=== PATIENT | female | born 1935 | race Asian ===

== ENCOUNTER 2017-07-01 15:45 | Emergency (ER) | payer MEDICARE ==
[~2017-07-01] VITALS: Ht 152.4 cm; Wt 36.3 kg
--- NOTE | 2017-07-01 15:45 | NUR ---
Patient to ER bed 08 to gown for evaluation. Side rails up. Report given to Roel.
--- NOTE | 2017-07-01 15:45 | NUR ---
Pt report received from MELANY Bassett. Pt brought in with c/o "vomiting up blood" with cough since this AM. Pt AAOx3, even and non-labored respirations, BBS clear, no active vomiting or cough noted at this time. Pt denies c/o SOB or C/P. Family member at bedside.
[2017-07-01] MEDS ORDERED: NS 500 ML IV SCH (15:48)
[2017-07-01 15:57] VITALS: BP_SYST 146
[2017-07-01] MEDS ORDERED: cefTRIAXone 1 GM IVPB PREMIX 50 ML IV ONE (16:00)
--- NOTE | 2017-07-01 16:00 | NUR ---
# 20 gauge angiocath placed to RAC. Use of asceptic technique. Opsite placed over site. Blood return noted. Blood for lab drawn from site. Flushed with 10 cc of normal saline. No evidence of infiltration noted. Patient tolerated well.
[2017-07-01 16:29] LABS: BASOPHILS % (AUTO) 0.2 % (0.0-2.0); EOSINOPHILS # (AUTO) 0.1 K/uL (0.0-0.4); EOSINOPHILS % (AUTO) 0.6 % (0.0-4.0); HEMATOCRIT 35.2 % (36-48); HEMOGLOBIN 11.4 g/dL (12.0-16.0); LYMPHOCYTES # (AUTO) 1.6 K/uL (1.0-5.5); LYMPHOCYTES % (AUTO) 12.4 % (20.5-51.5); MEAN CORPUSCULAR HEMOGLOBIN 29 pg (27-31); MEAN CORPUSCULAR HGB CONC 33 % (32-36); MEAN CORPUSCULAR VOLUME 90 fL (79.0-98.0); MONOCYTES # (AUTO) 0.4 K/uL (0.0-1.0); MONOCYTES % (AUTO) 3.4 % (1.7-9.3); NEUTROPHILS % (AUTO) 83.4 % (40.0-70.0); PLATELET COUNT (AUTO) 335 K/uL (130-430); RED BLOOD CELL COUNT(AUTO) 3.89 MIL/uL (4.2-6.2); RED CELL DISTRIBUTION WIDTH 12.6 % (9.0-15.0); WHITE BLOOD COUNT (AUTO) 13.1 K/uL (4.8-10.8)
[2017-07-01 16:51] LABS: ALANINE AMINOTRANSFERASE 12 U/L (12-78); ALBUMIN 2.9 g/dL (3.4-4.8); ANION GAP 8 (5-15); ASPARTATE AMINOTRANSFERASE 17 U/L (10-37); CALCIUM 9.2 mg/dL (8.4-11.0); CHLORIDE 99 mmol/L (98-107); CREATININE 0.72 mg/dL (0.55-1.30); GLUCOSE 203 mg/dL (70-99); POTASSIUM 3.6 mmol/L (3.5-5.1); SODIUM SERUM 133 mmol/L (136-145); TOTAL BILIRUBIN 0.5 mg/dL (0.0-1.0); UREA NITROGEN, BLOOD 20 mg/dL (8-21)
[2017-07-01 16:52] LABS: INR 1.1 (0.8-1.2); PROTHROMBIN TIME 10.9 SECS (9.5-12.5)
--- NOTE | 2017-07-01 17:00 | NUR ---
Pt speaking with family member at bedside. Pt denies c/o SOB or C/P. No coughing up blood noted or reported.
[2017-07-01 18:45] VITALS: BP_SYST 118
--- NOTE | 2017-07-01 18:45 | NUR ---
Patient given written and verbal discharge instructions and verbalizes understanding. ER MD discussed with patient the results and treatment provided. Patient in stable condition. ID arm band removed. IV catheter removed intact and dressing applied, no active bleeding. Rx of Albuterol and Augmentin given. Patient educated on pain management and to follow up with PMD. Pain Scale 0/10. Opportunity for questions provided and answered.
== END 2017-07-01 18:45 | disposition home or self-care (01) ==
LOC: SED 15:45
DX: J40 Bronchitis, not specified as acute or chronic (principal)
CPT/HCPCS: 36415; 71010; 80053; 84484; 85025; 85610; 85730; 87040; 93005; 96365; 99285; J0696; J7040